=== PATIENT | female | born 1995 | race Hispanic/Latino ===

== ENCOUNTER 2024-04-13 18:30 | Emergency (ER) | payer SELFPAY ==
[2024-04-13 18:31] VITALS: BP 158/102
[2024-04-13 18:56] LABS: % Basophils 0.2 % (0-2); % Immature Granulocytes 0.2 % (0-0.5); % Lymphocytes 27.6 % (20.5-51.1); % Monocytes 4.7 % (1.7-9.3); % Neutrophils 65.3 % (42.2-75.2); Absolute Eosinophils 0.2 10^3/uL (0-0.7); Absolute Lymphocytes 2.5 10^3/uL (1.2-3.4); Absolute Monocytes 0.4 10^3/uL (0.1-0.6); Hematocrit 38.9 % (37.0-47.0); Hemoglobin 13.1 g/dL (12.0-16.0); Mean Corp Hgb Conc. 33.7 g/dL (33.0-37.0); Mean Corpuscular Hgb 28.2 pg (27.0-31.0); Mean Corpuscular Volume 83.7 fL (81.0-99.0); Mean Platelet Volume 8.6 fL (7.4-10.4); Nucleated Red Blood Cells % 0 %; Platelet Count 315 10^3/uL (130-400); Red Blood Cell Count 4.65 10^6/uL (4.20-5.40); Red Cell Dist. Width 13.1 % (11.5-14.5); White Blood Cell Count 9.2 10^3/uL (4.8-10.8)
[2024-04-13 19:14] LABS: ALT (SGPT) 53 U/L (0-35); AST (SGOT) 68 U/L (14-36); Albumin 4.2 g/dl (3.5-5.0); Alkaline Phosphatase 114 U/L (38-126); Blood Urea Nitrogen 9 mg/dl (7-17); Carbon Dioxide 26 mmol/L (22-30); Chloride 104 mmol/L (98-107); Glucose 118 mg/dl (70-99); Potassium 4.6 mmol/L (3.5-5.1); Sodium 139 mmol/L (135-145); Total Bilirubin 0.4 mg/dl (0.2-1.3); Total Protein 7.7 g/dl (6.3-8.2); eGFR > 60.00
[2024-04-13 19:42] VITALS: BMI 55.8
[2024-04-13 19:44] VITALS: BP 146/73
[2024-04-13 20:00] VITALS: BP 145/62
--- NOTE | 2024-04-13 20:00 | ED.GENMED ---
History of Present Illness
General
Chief Complaint: Problems
Time Seen by Provider: 04/13/24 19:43
History of Present Illness
History of Present Illness:
29-year-old A3 presenting to the emergency department for vaginal spotting and cramping in . Patient reports symptoms for the past few days. She believes she is about 5 to 6 weeks with last menstrual period February 09. Patient
reports history of hemophilia, usually follows at [facility] for pregnancies. Notes that she only receives factor during delivery. Denies any dysuria. Denies chest pain or difficulty breathing. Denies fever. She has not yet established care for this
. Denies any history of abdominal surgeries. Denies additional acute medical complaints.
Past History
Past History
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
ED Past Surgical History: Tonsilectomy
Social History
Tobacco: Non-smoker
Living: with family
Family History
Family History: Unable to obtain
Phy Exam
Physical Exam
Physical Exam:
General: Well-appearing, no clinical signs of dehydration, nontoxic and in no acute distress. Morbidly obese
HEENT: protecting airway
Neck: appears supple
CV: Normal heart rate
Resp: No accessory muscle use, no increased work of breathing
Abd: Soft and non-distended, no tenderness to palpation, normal bowel sounds
Extremities: No deformities, no swelling, no erythema
Neuro: alert, no focal neurologic deficit
: deferred
Rectal: deferred
Psych: Normal affect
Skin: Intact
Course
Orders/Labs/Results
Orders:
Orders
04/13/24 18:51
Beta HCG Quantitative Urgent
Is this a screen?: No
Complete Blood Count/With Diff Urgent
Comprehensive Metabolic Panel Urgent
04/13/24 19:59
US W Transvaginal Urgent
Reason For Exam: spotting and cramping, 5-6 weeks preg
04/13/24 20:06
ABO [Blood Group&Type] Urgent
04/13/24 22:10
Urinalysis Urgent
Date Specimen was Collected: 04/13/24
Time Specimen was Collected: 22:07
Abnormal Lab Results
04/13/24
18:51
Creatinine 0.4 L mg/dL
(0.6-1.0)
Glucose 118 H mg/dl
(70-99)
AST 68 H U/L
(14-36)
ALT 53 H U/L
(0-35)
04/13/24 18:51
04/13/24 18:51
Vital Signs
Initial and Last Documented VS:
Initial Vital Signs
Temp Pulse Resp BP Pulse Ox
98.6 F 91 18 158/102 96
04/13/24 18:31 04/13/24 18:31 04/13/24 18:31 04/13/24 18:31 04/13/24 18:31
Last Documented Vital Signs
Temp Pulse Resp BP Pulse Ox
98.6 F 91 18 139/57 97
04/13/24 18:31 04/13/24 18:31 04/13/24 18:31 04/13/24 21:00 04/13/24 21:15
Information
Weeks gestation: Weeks: (5)
Location: N/A
MDM/Problems Addressed
MDM/Problems Addressed:
29-year-old female, , with history of hemophilia presenting to the emergency department for vaginal spotting and cramping in , first trimester. Vital signs on arrival significant for mild hypertension.
On exam, patient is resting comfortably, no acute distress or discomfort. Symptoms concerning for threatened miscarriage. Ectopic is also a consideration, however abdominal exam is benign without any focal reproducible tenderness to the
abdomen, soft and nondistended. Plan for laboratory analysis and ultrasound imaging. Will also obtain ABO Rh.
10:30 - Labs are unremarkable with exception of mild transaminitis. No protein in the urine. Ultrasound without conclusive . Possible intrauterine gestational sac noted with mean gestational sac size of 1.01 cm, corresponding with a
gestational age of 5 weeks 5 days. No yolk sac or pole identified. Patient will require close interval follow-up with trending of beta levels. Patient not a candidate for RhoGAM. Feel stable for discharge with close interval follow-up with
obstetrics. Patient will require recheck of her blood pressure. She notes history of high blood pressure in the past, had previously been on antihypertensive medications. Again explained importance of follow-up. Return precautions discussed and
patient verbalized understanding
*Critical Care Note
Total Time (30-74mins, 75-104mins- exclusive of procedures): Not Applicable
ED Attending Note
-
Portions of this chart may have been created with voice recognition software.� Occasional wrong word or��sound alike� substitutions may have occurred due to the inherent limitations of voice recognition software.
Discharge Plan
Departure
Patient Disposition: Home (Routine Discharge)
Date of Disposition: 04/13/24
Time of Disposition: 22:53
Patient with high blood pressure during this ER visit?: Yes
Condition: Good
Discharge Problem:
Miscarriage, threatened, early , Hypertension affecting in first trimester
Instructions: Threatened Miscarriage (DC), BLOOD PRESSURE
Prescriptions:
No Action
with DHA-Folic Acid 1 EACH tablet,chewable
2 ea PO DAILY
acetaminophen [Tylenol] 325 mg Tablet
650 mg PO Q6H PRN (Reason: headache)
Referrals:
Eliana Walker NP [Family Provider] -
Activity Restrictions/Additional Instructions:
Please follow-up with your OB doctor for establishment of this . You had an ultrasound today which did not show the location of the . We suspect that it is too early. You will need close interval follow-up for repeat ultrasound
imaging and repeat beta quantitative blood testing. Return immediately to the emergency department with any increased abdominal pain, increased vaginal bleeding, development of fever, chest pain, difficulty breathing, weakness or lightheadedness,
headache or visual changes
Interventions
Interventions:
*Risk Screen - Suicide Last Done: 04/13/24 19:42
*General Assessment Last Done: 04/13/24 18:31
*Neglect/Abuse Screening Last Done: 04/13/24 19:42
ED- Fall Risk Assessment Last Done: 04/13/24 19:42
*ED COVID-19 Vaccine History Last Done: 04/13/24 18:31
*Nursing Disposition Last Done: 04/13/24 23:07
ED-Female Genitourinary Assessment Last Done: 04/13/24 19:42
Discharge Date and Time
Discharge Date/Time: 04/13/24 23:07
Print Language: DIVEHI
[2024-04-13 20:04] VITALS: BP 134/65
[2024-04-13 21:00] VITALS: BP 139/57
[2024-04-13 22:17] LABS: Urine Albumin Negative (Neg - Trace); Urine Bilirubin Negative (Negative); Urine Character Clear (Clear); Urine Color Yellow; Urine Glucose Negative (Negative); Urine Ketone Negative (Negative); Urine Leukocyte Negative (Negative); Urine Nitrite Negative (Negative); Urine Occult Blood Negative (Negative); Urine Specific Gravity 1.015 (<1.030); Urine Urobilinogen Negative (Neg - 1+)
== END 2024-04-13 23:07 | disposition home or self-care (01) ==
LOC: EMR 18:30
PROVIDERS: Emergency Medicine; EMERGENCY PHYSICIAN Student in an Organized Health Care Education/Training Program; FAMILY PHYSICIAN Nurse Practitioner Adult Health
DX: O20.0 Threatened abortion (principal); O16.1 Unspecified maternal hypertension, first trimester; O26.891 Other specified pregnancy related conditions, first trimester; D66 Hereditary factor VIII deficiency; R74.01 Elevation of levels of liver transaminase levels; Z88.6 Allergy status to analgesic agent; Z88.8 Allergy status to other drugs, medicaments and biological substances
CPT/HCPCS: 99284; 76801; 76817; 80053; 81003; 84702; 85025; 86900; 86901

== ENCOUNTER 2024-04-22 17:36 | Emergency (ER) | payer SELFPAY ==
[2024-04-22 17:54] VITALS: BP 160/97
[2024-04-22 18:12] LABS: % Basophils 0.3 % (0-2); % Eosinophils 1.7 % (0-6); % Immature Granulocytes 0.3 % (0-0.5); % Lymphocytes 26.3 % (20.5-51.1); % Monocytes 5.1 % (1.7-9.3); % Neutrophils 66.3 % (42.2-75.2); Absolute Eosinophils 0.2 10^3/uL (0-0.7); Absolute Lymphocytes 2.8 10^3/uL (1.2-3.4); Absolute Monocytes 0.6 10^3/uL (0.1-0.6); Absolute Neutrophils 7.1 10^3/uL (1.4-6.5); Hematocrit 39.7 % (37.0-47.0); Hemoglobin 13.7 g/dL (12.0-16.0); Mean Corp Hgb Conc. 34.5 g/dL (33.0-37.0); Mean Corpuscular Hgb 28.1 pg (27.0-31.0); Mean Corpuscular Volume 81.4 fL (81.0-99.0); Mean Platelet Volume 8.7 fL (7.4-10.4); Nucleated Red Blood Cells % 0 %; Platelet Count 353 10^3/uL (130-400); Red Blood Cell Count 4.88 10^6/uL (4.20-5.40); Red Cell Dist. Width 12.9 % (11.5-14.5); White Blood Cell Count 10.7 10^3/uL (4.8-10.8)
[2024-04-22 18:24] LABS: ALT (SGPT) 56 U/L (0-35); AST (SGOT) 73 U/L (14-36); Albumin 4.4 g/dl (3.5-5.0); Alkaline Phosphatase 116 U/L (38-126); Blood Urea Nitrogen 14 mg/dl (7-17); Calcium 9.7 mg/dl (8.4-10.2); Carbon Dioxide 25 mmol/L (22-30); Chloride 103 mmol/L (98-107); Glucose 137 mg/dl (70-99); Potassium 4.2 mmol/L (3.5-5.1); Sodium 138 mmol/L (135-145); Total Bilirubin 0.5 mg/dl (0.2-1.3); eGFR > 60.00
[2024-04-22 18:52] LABS: Beta HCG Quantitative 824.34 mIU/ml
[2024-04-22] MEDS: ZOFRAN 4 MG IV (19:25)
[2024-04-22] MEDS: MORPHINE SULFATE 4 MG IV (19:27)
[2024-04-22 22:13] VITALS: BP 120/79
--- NOTE | 2024-04-22 22:50 | ED.GENMED ---
History of Present Illness
General
Chief Complaint: Problems
Source: patient
Exam Limitations: none
Time Seen by Provider: 04/22/24 18:11
Nursing documentation reviewed up to this point in time: agreed with
History of Present Illness
History of Present Illness:
Patient to ED wt complaint of vaginal bleeding, pelvic cramping. SHe reports she is approx 5-6 weeks . States she had some bleeding earlier this week but today bleeding became heavier, passing clots. Brought to ED by family for eval.
(including most likely miscarriage tonight)
Past History
Past History
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
ED Past Surgical History: Tonsilectomy
Social History
Tobacco: Non-smoker
Living: with family
Family History
Family History: Unable to obtain
Review of Systems
Review of Systems
Allergies reviewed?: Yes
All Other Systems: ROS reviewed and negative except as documented in HPI and ROS
Constitutional: Reports no symptoms
EENT: Reports no symptoms
Respiratory: Reports no symptoms
Cardiac: Reports no symptoms
ABD/GI: Reports abdominal pain (pelvic cramping)
: Reports bleeding
Musculoskeletal: Reports no symptoms
Skin: Reports no symptoms
Neurological: Reports no symptoms
Psychiatric: Reports no symptoms
Phy Exam
General Physical Exam
General Presentation: well appearing
General age: appears stated age
General Skin: warm and dry
General Habitus: normal
Gastrointestinal Exam
Gastrointestinal Exam: normal bowel sounds, non tender and soft
Genitourinary Exam Female
Exam Female: vaginal bleeding (1 pad while in ED. Bleeding lessening. Cramping decreasing. Speculum exam deferred for US)
Musculoskeletal Exam
Musculoskeletal Exam: full ROM and neuro vasc intact
Skin Exam
Skin Exam: normal color, warm/dry and no rash
Psychiatric Exam
Psychiatric Exam: normal mood/affect
Course
Orders/Labs/Results
Orders:
Orders
04/22/24 17:58
Test Result ONCE
04/22/24 17:59
Beta HCG Quantitative Urgent
Comment: ADD ON
Complete Blood Count/With Diff Urgent
Comprehensive Metabolic Panel Urgent
04/22/24 18:19
Add On- LAB Urgent
Comments:: sst in lab
Tests Added?: cancel qual, add quantitative HCG
04/22/24 18:28
US W Transvaginal Urgent
Reason For Exam: bleeding
04/22/24 19:19
Morphine Sulfate 4 mg .ROUTE .STK-MED ONE
Ondansetron Injectable [Zofran] 4 mg .ROUTE .STK-MED ONE
04/22/24 19:24
Ondansetron Injectable [Zofran] 4 mg IV NOW STA
04/22/24 19:27
Morphine Sulfate 4 mg IV NOW STA
04/22/24 23:09
PTT Urgent
Prothrombin Time Urgent
Abnormal Lab Results
04/22/24 04/22/24
17:59 23:09
Absolute Neuts (auto) 7.1 H 10^3/uL
(1.4-6.5)
APTT 39.5 H Sec
(23.4-35.0)
Creatinine 0.5 L mg/dL
(0.6-1.0)
Glucose 137 H mg/dl
(70-99)
AST 73 H U/L
(14-36)
ALT 56 H U/L
(0-35)
04/22/24 17:59
04/22/24 17:59
Vital Signs
Initial and Last Documented VS:
Initial Vital Signs
Temp Pulse Resp BP Pulse Ox
98.5 F 117 18 160/97 95
04/22/24 17:54 04/22/24 17:54 04/22/24 17:54 04/22/24 17:54 04/22/24 17:54
Last Documented Vital Signs
Temp Pulse Resp BP Pulse Ox
98.5 F 92 20 120/79 97
04/22/24 17:54 04/22/24 23:26 04/22/24 23:26 04/22/24 22:13 04/22/24 23:26
Information
Weeks gestation: Weeks: (5)
Location: Location: (no IUP identified)
*Critical Care Note
Total Time (30-74mins, 75-104mins- exclusive of procedures): Not Applicable
Update Note
Update Note:
Patient to ED with complaint of vaginal bleeding and pelvic cramping. Bleeding heavy this AM but has now lessened. Pelvic US with evidence of IUP. Blood products present lower uterine segment. Discussed findings with patient. She will be
following up with her OB at [facility] tomorrow. History of hemophilia B. States she has only needed clotting factor after term deliveries, has never needed factor with her prior miscarriages. Follows with Hematology at [facility] also. VSS, blood count
normal. Discussed with Dr. Lombardo, Dr. Torres. Ok for discharge home. SHe was given strict instructions on s/s to return to ED and she is agreeable to plan,
ED Attending Note
-
Portions of this chart may have been created with voice recognition software.� Occasional wrong word or��sound alike� substitutions may have occurred due to the inherent limitations of voice recognition software.
Discharge Plan
Departure
Patient Disposition: Home (Routine Discharge)
Date of Disposition: 04/22/24
Time of Disposition: 23:15
Patient with high blood pressure during this ER visit?: No
Condition: Good
Covid-19: Not Applicable
Discharge Problem:
Miscarriage
Instructions: Miscarriage (DC)
Prescriptions:
No Action
with DHA-Folic Acid 1 EACH tablet,chewable
2 ea PO DAILY
acetaminophen [Tylenol] 325 mg Tablet
650 mg PO Q6H PRN (Reason: headache)
Referrals:
NONE,* [Family Provider] -
Activity Restrictions/Additional Instructions:
Follow up with your safemaker in the AM. You will need to have your HCG levels rechecked this week also. Return to the emergency department immediately for worsening/heavy bleeding, increasing pain, fever/chills, or for any further concerns.
Interventions
Interventions:
*Risk Screen - Suicide Last Done: 04/22/24 17:54
*General Assessment Last Done: 04/22/24 17:54
*Neglect/Abuse Screening Last Done: 04/22/24 17:54
ED- Fall Risk Assessment Last Done: 04/22/24 23:26
*ED COVID-19 Vaccine History Last Done: 04/22/24 23:26
*Nursing Disposition Last Done: 04/22/24 23:26
ED-Female Genitourinary Assessment Last Done: 04/22/24 18:35
Discharge Date and Time
Discharge Date/Time: 04/22/24 23:27
Print Language: LEBANESE
[2024-04-22 23:33] LABS: INR 1.04; PT 13.4 Sec (11.4-14.6)
[2024-04-22 23:34] LABS: APTT 39.5 Sec (23.4-35.0)
== END 2024-04-22 23:27 | disposition home or self-care (01) ==
LOC: EMR 17:36
PROVIDERS: Nurse Practitioner; EMERGENCY PHYSICIAN Emergency Medicine
DX: O03.9 Complete or unspecified spontaneous abortion without complication (principal)
CPT/HCPCS: 99284; 96374; 96375; 76801; 76817; 80053; 84702; 85025; 85610; 85730

== ENCOUNTER 2025-03-20 18:17 | Emergency (ER) | payer SELFPAY ==
[2025-03-20 18:21] VITALS: BP 155/92
[2025-03-20 18:51] LABS: % Basophils 0.4 % (0-2); % Eosinophils 1.8 % (0-6); % Immature Granulocytes 0.3 % (0-0.5); % Lymphocytes 33.3 % (20.5-51.1); % Monocytes 5.2 % (1.7-9.3); Absolute Eosinophils 0.2 10^3/uL (0-0.7); Absolute Lymphocytes 3.2 10^3/uL (1.2-3.4); Absolute Monocytes 0.5 10^3/uL (0.1-0.6); Absolute Neutrophils 5.6 10^3/uL (1.4-6.5); Hemoglobin 13.5 g/dL (12.0-16.0); Mean Corp Hgb Conc. 33.8 g/dL (33.0-37.0); Mean Corpuscular Hgb 27.4 pg (27.0-31.0); Mean Corpuscular Volume 81.1 fL (81.0-99.0); Mean Platelet Volume 8.9 fL (7.4-10.4); Nucleated Red Blood Cells % 0 %; Platelet Count 327 10^3/uL (130-400); Red Blood Cell Count 4.93 10^6/uL (4.20-5.40); Red Cell Dist. Width 13.2 % (11.5-14.5); White Blood Cell Count 9.6 10^3/uL (4.8-10.8)
[2025-03-20 19:06] LABS: HCG, Serum Qualitative Screen Negative
[2025-03-20 19:15] LABS: Troponin I < 0.012 ng/ml
[2025-03-20 19:17] LABS: ALT (SGPT) 35 U/L (0-35); AST (SGOT) 31 U/L (14-36); Albumin 4.1 g/dl (3.5-5.0); Alkaline Phosphatase 90 U/L (38-126); Blood Urea Nitrogen 15 mg/dl (7-17); Calcium 9.5 mg/dl (8.4-10.2); Carbon Dioxide 26 mmol/L (22-30); Chloride 106 mmol/L (98-107); Glucose 240 mg/dl (70-99); Potassium 4.7 mmol/L (3.5-5.1); Sodium 140 mmol/L (135-145); Total Bilirubin 0.5 mg/dl (0.2-1.3); Total Protein 7.8 g/dl (6.3-8.2); eGFR > 60.00
[2025-03-20 19:41] LABS: TSH Reflex To Free T4 1.96 uIU/ml (0.47-4.68)
[2025-03-20 20:38] VITALS: BMI 52.8
--- NOTE | 2025-03-20 21:51 | ED.GENMED ---
History of Present Illness
General
Chief Complaint: Swelling
Source: patient
Time Seen by Provider: 03/20/25 20:25
History of Present Illness
History of Present Illness:
Note:
CHIEF COMPLAINT(S)
Lightheadedness, leg swelling, chest discomfort, palpitations, fatigue.
HISTORY OF PRESENT ILLNESS
The patient is a 30-year-old female presenting with lightheadedness, swelling in the legs, chest discomfort, palpitations, and persistent fatigue. The patient reports that her legs feel numb and swollen, but she denies any fever, cough, or recent
upper respiratory infections. She does experience excessive sweating and becomes very hot. Occasionally, there is pain with deep inspiration. There is no history of similar symptoms in the past. The patient denies any recent tick bites or rashes.
Symptoms have been ongoing for the last few weeks, seemingly worse over the last 2 to 3 days which is what prompted her visit to the ER this evening.
According to the patient, she has a history of being a carrier for hemophilia and has a son with severe hemophilia. She experiences heavy menstrual periods but denies recent surgeries, except for a tonsillectomy at age 11. Her reported medications
do not include any hormonal therapies or anticoagulants.
EXTERNAL RECORDS REVIEWED
Based on current tests, the patients cardiac tests, including labs and electrolyte panels, appear normal. Thyroid and kidney functions are reportedly normal. Hemoglobin levels are appropriate, diminishing the likelihood of bleeding or clotting
disorders due to her carrier status.
CHRONIC MEDICAL CONDITIONS SIGNIFICANTLY AFFECTING CARE
Chronic conditions affecting care: Carrier of hemophilia.
SOCIAL DETERMINANTS AFFECTING HEALTH
The patient lacks medical insurance and does not have a primary care provider. There has been a lapse in her follow-up at the [facility]. She denies smoking, alcohol, or substance use.
ALLERGIES
No known drug allergies.
SOCIAL HISTORY
No smoking, alcohol, or substance use.
REVIEW OF SYSTEMS
- Cardiovascular: Chest discomfort, palpitations.
- Respiratory: Pain with deep inspiration.
- Endocrine: Excessive sweating, feels hot.
- Musculoskeletal: Leg swelling, numbness.
- General: Persistent fatigue, lightheadedness.
Past History
Past History
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
ED Past Surgical History: Tonsilectomy
Social History
Tobacco: Non-smoker
Alcohol: None
Drug: None
Personal: Single
Living: with family
Family History
Family History: Unable to obtain
Review of Systems
Review of Systems
All Other Systems: ROS reviewed and negative except as documented in HPI and ROS
Phy Exam
Physical Exam
Physical Exam:
GENERAL: Alert , in no apparent distress, overweight
HEAD: Normocephalic atraumatic clear conjunctiva
EYE: Clear conjunctiva
NECK: Supple, no goiter
ENT: o/p clr, mmm.
CARDIAC: Regular rate and rhythm, no murmur.
LUNGS: Clear breath sounds bilaterally, no acute respiratory distress, no wheezes/rales/rhonchi
ABDOMEN: Soft, without focal tenderness, no r/g, no cvat
NEUROLOGICAL: Alert and oriented
SKIN: Warm and dry, skin intact.
MUSCULOSKELETAL: No edema, well perfused.
PSYCH: Normal and appropriate interaction.
Scores
Heart Failure Risk
Heart Failure Risk Score: Not Applicable
Heart Score for Chest Pain Patients
STEMI patient?: Not applicable
Withdrawal Assessment of Alcohol
Withdrawal Assessment Completed?: Not applicable
Course
Orders/Labs/Results
Orders:
Orders
03/20/25 18:25
ECG [Electrocardiogram (*1)] Urgent
Reason for Study: Palpitations
03/20/25 18:26
EKG- Treatment ONCE
Test Result ONCE
03/20/25 18:43
Complete Blood Count/With Diff Urgent
Comprehensive Metabolic Panel Urgent
HCG, Serum Qualitative Screen Urgent
TSH Reflex To Free T4 Urgent
Troponin I Urgent
03/20/25 20:39
CR Chest - 2 Views Urgent
Comment:
Reason For Exam: palpitations, SOB, intermittent discomfort
Abnormal Lab Results
03/20/25
18:43
Creatinine 0.5 L mg/dL
(0.6-1.0)
Glucose 240 H mg/dl
(70-99)
03/20/25 18:43
03/20/25 18:43
Vital Signs
Initial and Last Documented VS:
Initial Vital Signs
Temp Pulse Resp BP Pulse Ox
98.2 F 93 16 155/92 98
03/20/25 18:21 03/20/25 18:21 03/20/25 18:21 03/20/25 18:21 03/20/25 18:21
Last Documented Vital Signs
Temp Pulse Resp BP Pulse Ox
98.2 F 70 18 106/66 99
03/20/25 18:21 03/20/25 22:21 03/20/25 22:21 03/20/25 22:21 03/20/25 22:21
MDM/Problems Addressed
Differential Diagnosis Includes:
The Differential Diagnosis includes, in no particular order and is not limited to:
1. Viral infection
2. Hormonal imbalance
3. Idiopathic edema
4. Cardiac arrhythmia
5. Anemia
6. Venous insufficiency
7. Hyperhidrosis
8. Anxiety disorder
9. Thyroid dysfunction
10. Pulmonary embolism (less likely due to patient�s hemophilia carrier status)
MDM/Problems Addressed:
Plan includes obtaining an EKG and a chest X-ray to rule out significant pathology. Recommend the use of compression stockings and leg elevation to manage leg swelling. Referral to the [facility] for ongoing outpatient management and
potential further testing such as a hemoglobin A1C, considering her lack of medical insurance.
*Radiology
Radiology exam reviewed: preliminary read by ED provider (Normal chest x-ray)
*Pulse Oximetry
SaO2: 98
Oxygen Mode of Delivery: Room air
*EKG
Heart Rate: 86
Rate: normal
Rhythm: sinus
Ischemia: no ischemia
*Fisher Hand Line Interpretation
Rate: normal
Rhythm: sinus
*Critical Care Note
Total Time (30-74mins, 75-104mins- exclusive of procedures): Not Applicable
Patient Management
Escalation/DeEscalation of care consider admission/obs:
At this time patient is stable for discharge home. I did discuss with her her elevated glucose which could signify diabetes and that she would need further workup as an outpatient for this. Dietary modification discussed. Patient aware of return
precautions but otherwise stable for discharge home.
ED Attending Note
-
Portions of this chart may have been created with voice recognition software.� Occasional wrong word or��sound alike� substitutions may have occurred due to the inherent limitations of voice recognition software.
Discharge Plan
Departure
Patient Disposition: Home (Routine Discharge)
Date of Disposition: 03/20/25
Time of Disposition: 22:06
Patient with high blood pressure during this ER visit?: Yes
Discharge Problem:
Palpitations, Hyperglycemia
Instructions: High blood sugar in adults - ED discharge instructions
Prescriptions:
No Action
acetaminophen [Tylenol] 325 mg Tablet
650 mg PO Q6HPRN PRN (Reason: mild pain)
calcium carbonate [Tums] 200 mg calcium (500 mg) Tablet,Chewable
200 mg PO BIDPRN PRN (Reason: gerd)
Referrals:
[facility] [Outside]
Eliana Walker NP [Family Provider, Internal Medicine]
Stand Alone Forms: Return to Work
Interventions
Interventions:
*Risk Screen - Suicide Last Done: 03/20/25 22:22
*General Assessment Last Done: 03/20/25 22:22
*Neglect/Abuse Screening Last Done: 03/20/25 22:22
*ED- Fall Risk Assessment Last Done: 03/20/25 22:22
*ED COVID-19 Vaccine History Last Done: 03/20/25 22:22
*Nursing Disposition Last Done: 03/20/25 22:22
ED- Cardiac Assessment Last Done: 03/20/25 20:40
ED- Pulmonary Assessment Last Done: 03/20/25 20:40
ED-Skin Assessment Last Done: 03/20/25 20:40
Discharge Date and Time
Discharge Date/Time: 03/20/25 22:24
Print Language: MOLDOVAN
[2025-03-20 22:21] VITALS: BP 106/66
== END 2025-03-20 22:24 | disposition home or self-care (01) ==
LOC: EMR 18:17
PROVIDERS: Emergency Medicine; EMERGENCY PHYSICIAN Student in an Organized Health Care Education/Training Program; FAMILY PHYSICIAN Nurse Practitioner Adult Health
DX: R00.2 Palpitations (principal); R73.9 Hyperglycemia, unspecified; D66 Hereditary factor VIII deficiency; R07.89 Other chest pain; Z59.71 Insufficient health insurance coverage
CPT/HCPCS: 99285; 71046; 80053; 84443; 84484; 84703; 85025; 93005

== ENCOUNTER → 2025-07-02 13:12 | Outpatient (REF) | payer OTHER, SELFPAY | LOC: CLINIC 13:12 | PROVIDERS: ATTENDING PHYSICIAN Nurse Practitioner Adult Health | DX: Z12.4 Encounter for screening for malignant neoplasm of cervix (principal) | CPT/HCPCS: 87491; 87591; 87624 ==